=== PATIENT | female | born 1970 | race Caucasian/White ===

== ENCOUNTER 2016-09-02 07:53 | Emergency (ER) | payer OTHER, BC ==
[2016-09-02 08:17] VITALS: BP 137/87; PULSE 87; TEMP 98.2; BMI 30.6
[2016-09-02] MEDS ORDERED: DIPHTH,PERTUSS(ACELL),TET 0.5 ML DISP.SYRIN IM ONE (08:33)
--- NOTE | 2016-09-02 08:36 | PDOC ---
History of Present Illness - General Chief Complaint: Laceration Stated Complaint: LT FINGER INJURY (WORK RELATED) Time Seen by Provider: 09/02/16 08:33 History Source: Patient Exam Limitations: No Limitations - History of Present Illness Initial Comments: 09/02/16 08:54 46 yr female no medical history with laceration to left index finger at work on a pair of scissors. tetanus unknown. Severity: Yes: mild Past History - Past Medical History Allergies/Adverse Reactions: Allergies Allergy/AdvReac Type Severity Reaction Status Date / Time No Known Allergies Allergy Verified 09/02/16 08:11 Other medical history: denies - Family Disease History Comment:: 09/02/16 08:54 unknown - Psycho/Social/Smoking Cessation Hx Suicidal Ideation: No Smoking History: Former smoker Have you smoked in the past 12 months: No Information on smoking cessation initiated: No Hx Alcohol Use: No Drug/Substance Use Hx: No Substance Use Type: None, Alcohol Review of Systems - Review of Systems Able to Perform ROS?: Yes Is the patient limited German proficient: Yes Constitutional: No: Symptoms Reported HEENTM: No: Symptoms Reported Respiratory: No: Symptoms reported Cardiac (ROS): No: Symptoms Reported ABD/GI: No: Symptoms Reported : No: Symptoms Reported Musculoskeletal: No: Symptoms Reported Integumentary: Yes: See HPI *Physical Exam - Vital Signs Last Vital Signs Temp Pulse Resp BP Pulse Ox 98.2 F 87 16 137/87 98 09/02/16 08:12 09/02/16 08:12 09/02/16 08:12 09/02/16 08:12 09/02/16 08:12 - Physical Exam General Appearance: Yes: Nourished, Appropriately Dressed HEENT: positive: EOMI, ELVIA Musculoskeletal: positive: Normal Inspection Extremity: positive: Normal Capillary Refill Integumentary: positive: Normal Color, Dry, Warm, Other (left index finger volar surface at the pad of finger with 0.5cm flap laceration superficial , nv intact FROM ) Neurologic: positive: Fully Oriented, Alert, Normal Mood/Affect, Normal Response , Motor Strength 5/5 Procedures - Laceration/Wound Repair Left Anterior Distal 2nd digit Finger Wound Length: to 2.5 cm Wound Explored: clean Wound's Depth, Shape: superficial, flap Irrigated w/ Saline: Yes Sterile Dressing Applied: Yes (surgicel, xeroform and bulky finger wrap ) Medical Decision Making - Medical Decision Making 09/02/16 09:06 cc: finger laceration on scissors at work will clean and apply surgicel, bulky finger dressing with pressure gauze NV intact from will update tetanus *DC/Admit/Observation/Transfer Diagnosis at time of Disposition: Finger laceration Qualifiers: Encounter type: initial encounter Qualified Code(s): S61.219A - Laceration without foreign body of unspecified finger without damage to nail, initial encounter - Discharge Dispostion Disposition: HOME Condition at time of disposition: Improved - Referrals Referrals: Katarzyna Jauregui MD [Primary Care Provider] - - Patient Instructions Additional Instructions: keep dry for at least 3 days gently remove the dressing after 3 days and apply a small amount of bacitracin and re-cover with bandaid repeat this until healed any numbness, tingling, increase pain or drainage from finger follow with the hand surgeon - Post Discharge Activity Work/School Note: Back to Work
== END 2016-09-02 09:06 | disposition home or self-care (01) ==
LOC: JERFT 07:53
PROC: 0HQFXZZ Repair Right Hand Skin, External Approach (ICD-10-PCS; principal; 2016-09-02)
PROC: 3E0234Z Introduction of Serum, Toxoid and Vaccine into Muscle, Percutaneous Approach (ICD-10-PCS; 2016-09-02)
DX: S61.211A Laceration without foreign body of left index finger without damage to nail, initial encounter (principal); W27.2XXA Contact with scissors, initial encounter; Y93.9 Activity, unspecified; Y92.9 Unspecified place or not applicable; Y99.0 Civilian activity done for income or pay
CPT/HCPCS: 90715; 99281-25

== ENCOUNTER 2018-12-29 18:19 | Emergency (ER) | payer BC ==
--- NOTE | 2018-12-29 18:23 | PDOC ---
Rapid Medical Evaluation Time Seen by Provider: 12/29/18 18:21 Medical Evaluation: Allergies Allergy/AdvReac Type Severity Reaction Status Date / Time No Known Allergies Allergy Verified 09/02/16 08:11 12/29/18 18:21 I have performed a brief in-person evaluation of this patient. The patient presents with a chief complaint of: CP w/ SOB x several hrs. Had similar sxs several weeks ago. Attributes sxs to major stressors in her life this year and states she feels like she's been suffering from anxiety recently. Currently crying at triage. No sig hx. Pertinent physical exam findings: appears anxious, stable I have ordered the following:ekg/labs The patient will proceed to the ED for further evaluation 12/29/18 18:27 Discharge Disposition - Diagnosis Chest pain Qualifiers: Chest pain type: unspecified Qualified Code(s): R07.9 - Chest pain, unspecified - Referrals - Patient Instructions - Post Discharge Activity
[2018-12-29 18:25] VITALS: TEMP 97.7; BMI 34.7
--- NOTE | 2018-12-29 18:59 | PDOC ---
History of Present Illness - General Chief Complaint: Shortness of Breath Stated Complaint: SHORTNESS OF BREATH/CHEST PAIN Time Seen by Provider: 12/29/18 18:21 History Source: Patient Exam Limitations: No Limitations - History of Present Illness Initial Comments: Pt is a 48 yo F, with no significant PMH, who is presenting with complaints of intermittent R-sided chest pain that is associated with SOB and palpitations over the last 3 weeks. Pt states the pain is on the R-side of her chest, does not radiate, and not associated with n/v or diaphoresis. 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 Pt has also noticed heat intolerance, and her menstrual periods have been coming more frequently. Pt denies any recent travel , estrogen use, surgery, or cancer. Pt denies any fevers/chills, headache, vision changes, syncope, nausea/vomiting, abdominal pain, urinary symptoms, diarrhea/constipation, or leg swelling. Social: Pt denies any cigarette, alcohol, or drug use. Pt denies any recent travel or sick contacts. Surgical: prior Family: father with [place] at 67 12/29/18 21:42 Past History - Travel Traveled outside of the country in the last 30 days: No Close contact w/someone who was outside of country & ill: No - Past Medical History Allergies/Adverse Reactions: Allergies Allergy/AdvReac Type Severity Reaction Status Date / Time azithromycin [From Zithromax] AdvReac Vomiting Verified 12/29/18 19:52 Home Medications: Ambulatory Orders Cephalexin Monohydrate [Keflex -] 500 mg PO BID 5 Days #10 capsule 12/29/18 COPD: No Other medical history: DENIES - Immunization History Immunization Up to Date: Yes - Suicide/Smoking/Psychosocial Hx Smoking History: Never smoked Have you smoked in the past 12 months: No Hx Alcohol Use: No Drug/Substance Use Hx: No Substance Use Type: None, Alcohol Review of Systems - Review of Systems Able to Perform ROS?: Yes Is the patient limited Persian proficient: No Constitutional: Yes: Weight Stable. No: Chills, Diaphoresis, Fever, Loss of Appetite, Malaise, Weakness HEENTM: No: Blurred Vision, Recent change in vision, Double Vision, Nose Congestion, Throat Pain, Throat Swelling Respiratory: Yes: See HPI, Shortness of Breath, SOB at Rest. No: Cough, Orthopnea, SOB with Exertion, Wheezing Cardiac (ROS): Yes: See HPI, Chest Pain, Palpitations. No: Edema, Irregular Heart Rate, Lightheadedness, Syncope, Chest Tightness ABD/GI: No: Constipated, Diarrhea, Nausea, Poor Appetite, Poor Fluid Intake, Vomiting : No: Burning, Dysuria, Pain, Urgency Musculoskeletal: No: Back Pain, Joint Pain, Muscle Weakness Integumentary: Yes: Flushing. No: Rash, Sweating Neurological: No: Headache, Numbness, Paresthesia, Weakness, Unsteady Gait, Ataxia, Dizziness Psychiatric: Yes: Stressors. No: Sleep Pattern Change, Change in Appetite Endocrine: Yes: Flushing, Intolerance to Heat. No: Excessive Sweating, Intolerance to Cold, Change in Weight Hematologic/Lymphatic: No: Anemia, Blood Clots, Easy Bleeding, Easy Bruising All Other Systems: Reviewed and Negative *Physical Exam - Vital Signs Last Vital Signs Temp Pulse Resp BP Pulse Ox 97.7 F 75 18 158/86 97 12/29/18 18:21 12/29/18 18:21 12/29/18 18:21 12/29/18 18:21 12/29/18 18:21 - Physical Exam Comments: Vitals stable, pt afebrile. Pt in NAD, lying comfortably. Overweight body habitus. Pt alert and oriented x3. accounting consultant generally intact, muscular strength and sensation intact. No midline spinal tenderness, step-offs, or crepitus. Head normocephalic, atraumatic. Eyes PERRLA, EOMI. Oropharynx without erythema or exudates, no LAD b/l. No nasal congestion, hearing intact. Clear heart sounds, S1/S2, no JVD, b/l pedal edema, or heart murmur. Clear lung sounds, no respiratory distress, wheezes, crackles, or accessory muscle use. No abdominal or CVA tenderness to palpation, no rebound, no guarding. Abdomen soft, non-distended, and with normoactive bowel sounds. Skin without jaundice or rash. 12/29/18 21:37 ED Treatment Course - LABORATORY CBC & Chemistry Diagram: 12/29/18 19:30 12/29/18 19:30 Medical Decision Making - Medical Decision Making Pt was seen at bedside, also will be seen by attending Dr. Terry. Pt presenting with complaints of intermittent R-sided chest pain that is associated with SOB and palpitations over the last 3 weeks. Pt states the pain is on the R-side of her chest, does not radiate, and not associated with n/v or diaphoresis. 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 Pt has also noticed heat intolerance, and her menstrual periods have been coming more frequently. Pt denies any recent travel, estrogen use, surgery, or cancer. Pt denies any fevers/chills, headache, vision changes, syncope, nausea/vomiting, abdominal pain, urinary symptoms, diarrhea/constipation, or leg swelling. Considering ACS vs atypical chest pain vs angina vs anxiety vs perimenopausal symptoms vs thyroid dysfunction vs anemia vs electrolyte imbalances vs anxiety. Pt can be PERC negative, D-dimer not ordered. No exertional SOB, as it only comes with the chest pain, which is more consistent with anxiety. Ordered work-up including CBC, CMP, serum , TFTs, troponin, chest x-ray , ECG. Will get second, 3-hour troponin. No interventions provided at this time, as pt has no current symptoms. Will continue to reassess pt and monitor for symptomatic improvement. ECG: NSR, intervals WNL. No TWIs or significant ST segment changes. No prior ECG for comparison. 12/29/18 21:26 CBC, CMP, and TFTs WNL. Pending 2nd troponin at 10:30 pm. Pt signed out to night team (Dr. Lott). 12/29/18 21:38 *DC/Admit/Observation/Transfer Diagnosis at time of Disposition: Atypical chest pain - Prescriptions Prescriptions: Cephalexin Monohydrate [Keflex -] 500 mg PO BID 5 Days #10 capsule - Referrals Referrals: Marija Garcia MD [Primary Care Provider] - Nina Hinton MD [Staff Physician] - - Patient Instructions Printed Discharge Instructions: DI for Atypical Chest Pain - Post Discharge Activity
[2018-12-29 19:09] VITALS: BP 123/84; PULSE 60
[2018-12-29 19:47] LABS: BASO % 1.2 % (0-2.0); EOS % 1.8 % (0-4.5); HEMOGLOBIN 14.5 GM/dL (10.7-15.3); LYMPH % 34.9 % (8-40); MCH 28.6 pg (25.7-33.7); MCHC 33.7 g/dl (32.0-36.0); MEAN CELL VOLUME 84.7 fl (80-96); MONO % 7.1 % (3.8-10.2); PLATELET COUNT 248 K/MM3 (134-434); RBC 5.08 M/mm3 (3.60-5.2); RDW 13.9 % (11.6-15.6); WHITE BLOOD COUNT 11.2 K/mm3 (4.0-10.0)
--- NOTE | 2018-12-29 20:33 | PDOC ---
Documentation entered by Major Goss SCRIBE, acting as scribe for Laila Terry DO. Laila Terry DO: This documentation has been prepared by the Wolfgang banks Daniel, SCRIBE, under my direction and personally reviewed by me in its entirety. I confirm that the documentation accurately reflects all work , treatment, procedures, and medical decision making performed by me. Attending Attestation - Resident Resident Name: Glenys Carpenter - ED Attending Attestation I have performed the following: I have examined & evaluated the patient, The case was reviewed & discussed with the resident, I agree w/resident's findings & plan - HPI HPI: 12/29/18 19:33 The patient is a 48 year old with no past medical history here today for evaluation of chest pain. The patient reports that her chest pain began 2-3 weeks ago and describes it as intermittent, squeezing, and associates it with shortness of breath and palpitations. She notes that she has been feeling increased stress and anxiety at school and has been having hot flashes. Patient denies headache, lightheadedness. Denies fever, chills. Denies nausea, vomiting, diarrhea, abdominal pain. Denies lower extremity edema. Allergies: azithromycin PCP: Marija Garcia - Physicial Exam PE: 12/29/18 19:42 Agree with resident's physical exam. - Medical Decision Making 12/29/18 20:32 48-year-old female complaining of episodes of shortness of breath which she attributes to work induced stress with some chest tightness Patient's heart score less than 4 She is currently asymptomatic EKG shows a normal sinus rhythm at 62 bpm with no acute ST changes Plan for three-hour troponin and repeat EKG with discharge home and primary care follow-up
[2018-12-29 20:53] LABS: ALBUMIN 3.8 g/dl (3.4-5.0); ALK PHOS 86 U/L (45-117); ANION GAP 5 MMOL/L (8-16); BILIRUBIN,TOTAL 0.6 mg/dL (0.2-1); BLOOD UREA NITROGEN 20 mg/dL (7-18); CALCIUM 9.1 mg/dL (8.5-10.1); CHLORIDE 104 mmol/L (98-107); CO2 28 mmol/L (21-32); CREATININE 0.9 mg/dL (0.55-1.3); GLUCOSE,RANDOM 87 mg/dL (74-106); POTASSIUM 4.5 mmol/L (3.5-5.1); SGOT/AST 15 U/L (15-37); SGPT/ALT 20 U/L (13-61); SODIUM 137 mmol/L (136-145); TOT PROT 7.5 g/dl (6.4-8.2)
--- NOTE | 2018-12-29 21:34 | PDOC ---
*Physical Exam - Vital Signs Last Vital Signs Temp Pulse Resp BP Pulse Ox 97.7 F 60 13 123/84 100 12/29/18 18:21 12/29/18 19:01 12/29/18 19:01 12/29/18 19:01 12/29/18 19:01 ED Treatment Course - LABORATORY CBC & Chemistry Diagram: 12/29/18 19:30 12/29/18 19:30 - ADDITIONAL ORDERS Additional order review: Laboratory Results 12/29/18 12/29/18 12/29/18 19:30 19:30 19:30 Sodium 137 Potassium 4.5 Chloride 104 Carbon Dioxide 28 Anion Gap 5 L BUN 20 H Creatinine 0.9 Creat Clearance w eGFR 67.11 Random Glucose 87 Calcium 9.1 Total Bilirubin 0.6 AST 15 ALT 20 Alkaline Phosphatase 86 Creatine Kinase 89 Troponin I < 0.02 Total Protein 7.5 Albumin 3.8 TSH 2.54 Free T4 1.14 Serum , Qual Negative 12/29/18 19:30 RBC 5.08 MCV 84.7 MCHC 33.7 RDW 13.9 MPV 9.0 Neutrophils % 55.0 Lymphocytes % 34.9 Monocytes % 7.1 Eosinophils % 1.8 Basophils % 1.2 Medical Decision Making - Medical Decision Making 12/29/18 21:33 Pt signed out to me by Dr. Carpenter. 48F with no PMH who presents with intermittent CP. 12/29/18 23:51 Repeat troponin negative. Will d/c with PCP f/u. *DC/Admit/Observation/Transfer Diagnosis at time of Disposition: Atypical chest pain - Discharge Dispostion Disposition: HOME Condition at time of disposition: Stable Decision to Admit order: No - Prescriptions Prescriptions: Cephalexin Monohydrate [Keflex -] 500 mg PO BID 5 Days #10 capsule - Referrals Referrals: Nina Hinton MD [Staff Physician] - Marija Garcia MD [Primary Care Provider] - - Patient Instructions Printed Discharge Instructions: DI for Atypical Chest Pain Additional Instructions: Your ER visit is not complete until your follow up with your primary care physician. Please follow up with your primary care physician in 1-2 days. Please return to the ER if you have any signs or symptoms of chest pain, shortness of breath, uncontrollable fever, chills, nausea, vomiting, numbness, tingling, or weakness in any part of your body, changes in vision, or slurred speech. Please return to the ER if symptoms persist, worsen, or new symptoms arise. - Post Discharge Activity
--- NOTE | 2018-12-30 13:40 | EKG ---
Test Reason : Blood Pressure : / mmHG Vent. Rate : 062 BPM Atrial Rate : 062 BPM P-R Int : 166 ms QRS Dur : 078 ms QT Int : 398 ms P-R-T Axes : 039 043 042 degrees QTc Int : 403 ms NORMAL SINUS RHYTHM NORMAL ECG NO PREVIOUS ECGS AVAILABLE Confirmed by AMANDA HAMM MD ([id number]) on 12/30/2018 1:40:17 PM Referred By: Confirmed By:AMANDA HAMM MD
== END 2018-12-30 | disposition home or self-care (01) ==
LOC: JER 18:19
DX: R07.89 Other chest pain (principal)
CPT/HCPCS: 36415; 71046-TC-FY; 80053; 82550; 84439; 84443; 84484; 84703; 85025; 93005; 93010; 99284-25